=== PATIENT | female | born 1990 | race Caucasian/White ===

== ENCOUNTER 2018-06-16 08:20 | Emergency (ER) | payer MEDICAID ==
[~2018-06-16] VITALS: Ht 162.6 cm; Wt 70.3 kg
[2018-06-16 08:25] VITALS: Ht 162.6 cm; Wt 70.3 kg
[2018-06-16 09:07] LABS: CALCIUM 8.8 mg/dL (8.5-10.1); CARBON DIOXIDE 22.8 mmol/L (21-32); CREATININE SERUM 1.2 mg/dL (0.6-1.0); POTASSIUM SERUM 3.8 mmol/L (3.5-5.1)
[2018-06-16 09:12] LABS: PLATELET COUNT 196 x10^3mcL (130-400); RED CELL DISTRIBUTION WIDTH 12.2 % (11.5-14.5)
[2018-06-16 09:27] LABS: ALBUMIN 3.7 g/dL (3.4-5.0)
[2018-06-16 09:35] LABS: UA SPECIFIC GRAVITY 1.015 (1.005-1.035); microscopic required? YES; urine erythrocyte NEGATIVE (NEGATIVE)
[2018-06-16 09:40] LABS: BILIRUBIN TOTAL 0.82 mg/dL (0.20-1.00)
[2018-06-16 09:50] LABS: BAND NEUTROPHIL 11 % (0-10); BASOPHIL 0 % (0-2); MONOCYTE 2 % (0-7); SEGMENTED NEUTROPHILS 85 % (37-75)
[2018-06-16 09:51] LABS: PLATELET MORPHOLOGY PLATELETS NORMAL; rbc morphology (normal/abnorm) NORMAL (NORMAL)
[2018-06-16 09:55] LABS: TOTAL PROTEIN, SERUM 8.4 g/dL (6.4-8.2)
[2018-06-16 13:44] LABS: AMPHETAMINE QUAL UR NONE DETECTED (See below)
[2018-06-16 14:14] VITALS: BP 96/44
== END 2018-06-16 14:14 | disposition short-term general hospital (02) ==
LOC: ED 08:20
PROVIDERS: Emergency Medicine
DX: O98.811 Other maternal infectious and parasitic diseases complicating pregnancy, first trimester (principal); O26.891 Other specified pregnancy related conditions, first trimester; A41.9 Sepsis, unspecified organism; R10.31 Right lower quadrant pain; Z3A.11 11 weeks gestation of pregnancy
CPT/HCPCS: J0696; J2765; J3475; J7030